=== PATIENT | male | born 1970 | race Caucasian/White ===

== ENCOUNTER 2016-11-04 07:29 | Emergency (ER) | payer BC ==
[~2016-11-04 07:29] MED LIST: MUCINEX600 MG PO; NORVASC5 MG PO; PREDNISONE5 MG PO; PROTONIX40 MG PO; XOPENEX HFA15 GM IH; ZITHROMAX250 MG PO
--- NOTE | 2016-11-10 16:08 | ER ---
ADMIT: 11/04/2016 RM/LOC: ER [facility] MR#: [id number] [address] [id number] [address] [place] [address] Emergency Room Report SEX: M AGE: 45 : 1970 DATE: 11/04/2016 ADDENDUM: A 45-year-old white male, longstanding smoker, coming in with cough, essentially COPD exacerbation. We gave him a Xopenex treatment because he says he has allergies to albuterol. I gave him prednisone 60 mg p.o. here, and then 20 b.i.d. x4 days starting tomorrow. I put him on the Z-Isidro, which he had the last time. Counseled him on quitting smoking. He needs to see Dr. Lancaster next week. Off work today. CONDITION ON DISCHARGE: Improved. Paolo Del Cid MD/ bella JOB #: [id number] CC: Paolo Del Cid MD, Attending Physician Jocelyn Lancaster MD, Family Physician
== END 2016-11-04 08:30 | disposition home or self-care (01) ==
LOC: ER 07:29
DX: J44.0 Chronic obstructive pulmonary disease with (acute) lower respiratory infection (principal); J20.9 Acute bronchitis, unspecified; J44.1 Chronic obstructive pulmonary disease with (acute) exacerbation; I10 Essential (primary) hypertension; F17.210 Nicotine dependence, cigarettes, uncomplicated; Z88.8 Allergy status to other drugs, medicaments and biological substances